=== PATIENT | female | born 1980 | race Caucasian/White ===

== ENCOUNTER 2016-05-22 11:22 | Outpatient (CLI) ==
[2016-03-24 13:40] VITALS: BMI 28.8
[2016-05-22 12:53] LABS: BASOPHILS # (AUTO) 0.1 K/uL (0-0.2); BASOPHILS % (AUTO) 0.7 % (0.0-3.0); EOSINOPHILS # (AUTO) 0.3 K/ul (0.0-0.7); EOSINOPHILS % (AUTO) 3.5 % (0.0-7.0); HEMATOCRIT 40.9 % (37.0-47.0); HEMOGLOBIN 13.6 g/dl (12.0-16.0); IMMATURE GRANULOCYTE % (AUTO) 0.1 % (0.0-5.0); LYMPHOCYTES # (AUTO) 2.6 K/uL (0.60-3.4); LYMPHOCYTES % (AUTO) 37.3 (10.0-50.0); MEAN CORPUSCULAR HEMOGLOBIN 32.7 pg (27.0-31.0); MEAN CORPUSCULAR HGB CONC 33.3 (31.8-35.4); MEAN CORPUSCULAR VOLUME 98.3 fl (81.0-99.0); MONOCYTES # (AUTO) 0.5 K/uL (0.4-2.0); NEUTROPHILS # (AUTO) 3.6 K/ul (2.0-6.9); NEUTROPHILS % (AUTO) 51.4; PLATELET COUNT 290 10^3/uL (140-440); RED BLOOD COUNT 4.16 10^6/ul (4.20-5.40); WHITE BLOOD COUNT 7.05 K/ul (4.6-10.2)
[2016-05-22 13:04] LABS: ALBUMIN 3.8 g/dL (3.4-5.0); ALBUMIN/GLOBULIN RATIO 1.19; ANION GAP 14.1; BILIRUBIN,TOTAL 0.3 mg/dL (0.00-1.20); BUN/CREATININE RATIO 11.23; CALCIUM 9.4 mg/dL (8.2-10.2); CHOL/HDL RATIO 7.9 (4.5-5.5); CREATININE 0.89 mg/dL (0.60-1.30); POTASSIUM 4.1 mmol/L (3.5-5.10)
== END 2016-05-22 11:23 | disposition home or self-care (01) ==
LOC: LAB 11:22
PROVIDERS: ATTEND Nurse Practitioner Family
DX: B18.2 Chronic viral hepatitis C (principal)
CPT/HCPCS: 36415; 80053; 80061; 85025

== ENCOUNTER 2016-08-14 13:16 | Outpatient (CLI) ==
[2016-03-24 13:40] VITALS: BMI 28.8
--- NOTE | 2016-08-14 13:40 | US ---
EXAM: Ultrasound exam HISTORY: Localized adiposity COMPARISON: None FINDINGS: Ultrasound right axilla was performed in the region of clinical concern. No mass is micheal ntified. No focal sonographic abnormality identified. IMPRESSION: No mass identified in the right axilla in the region of clinical concern.
== END 2016-08-14 13:17 | disposition home or self-care (01) ==
LOC: RAD 13:16
PROVIDERS: ATTEND Nurse Practitioner Family
DX: E65 Localized adiposity (principal)
CPT/HCPCS: 76882

== ENCOUNTER 2016-09-27 14:42 | Emergency (ER) ==
[2016-09-27 14:50] VITALS: BP 116/81; TEMP 98; BMI 28.1
--- NOTE | 2016-09-27 15:00 | ED.PDOC ---
Medical Screening Exam - General Information Time Seen by Physician*: 14:58 Mode of Arrival: Walk-In Information Source: Patient - History Chief Complaint: Medication Refill Stated Complaint: Patient medications are due at [facility], it is closed today needs medications for 3 days. not suicidal or hocidal. Severity: None - Review Of Systems Constitutional: None CV: Reports: None Respiratory: Reports: None GI: Reports: None : Reports: None Musculoskeletal: Reports: None Neuro: Reports: None - Past Medical History Past Medical History: Previously healthy (depression) - Examination Findings Visit Related to : No - Medical Decision Making Emergency Medical Condition: No Physical Exam - Physical Exam Appearance: Well-appearing, No pain distress, Well-nourished Eyes: JEAN-PIERRE, EOMI, Conjunctiva clear ENT: Ears normal, Nose normal, Oropharynx normal Respiratory: Airway patent, Breath sounds clear, Breath sounds equal, Respirations nonlabored Cardiovascular: RRR, Pulses normal, No rub, No murmur GI/: Soft, Nontender, No masses, Bowel sounds normal, No Organomegaly Musculoskeletal: Normal strength, ROM intact, No edema, No calf tenderness Skin: Warm, Dry, Normal color Neurological: Sensation intact, Motor intact, Reflexes intact, Cranial nerves intact, Alert, Oriented Psychiatric: Affect appropriate, Mood appropriate Critical Care Note - Critical Care Note Total Time (mins): 0 Course - Course Vital Signs: Temp Pulse Resp BP Pulse Ox 09/27/16 14:42 98 F 96 H 20 116/81 95 Departure - Departure Time of Disposition: 15:03 Disposition: HOME SELF-CARE Discharge Problem: Medication refill Instructions: Medicine Refill (ED) Condition: Stable Pt referred to PMD for follow-up: No Additional Instructions: patient is stable all she needs is refills Prescriptions: Escitalopram Oxalate [Lexapro] 20 mg PO DAILY #4 tablet Quetiapine Fumarate [Seroquel] 200 mg PO DAILY #4 tablet Allergies/Adverse Reactions: Allergies No Known Allergies Allergy (Verified 03/24/16 13:45) Home Medications: Ambulatory Orders Diazepam [Valium] 10 mg PO TID 12/07/12 Quetiapine Fumarate [Seroquel] 200 mg PO BEDTIME 12/07/12 Escitalopram Oxalate [Lexapro] 20 mg PO DAILY 08/13/16 Escitalopram Oxalate [Lexapro] 20 mg PO DAILY #4 tablet 09/27/16 Quetiapine Fumarate [Seroquel] 200 mg PO DAILY #4 tablet 09/27/16 Disposition Discussed With: Patient
== END 2016-09-27 15:06 | disposition home or self-care (01) ==
LOC: ED 14:42
DX: Z00.8 Encounter for other general examination (principal); Z76.0 Encounter for issue of repeat prescription; Z79.899 Other long term (current) drug therapy
CPT/HCPCS: 99282

== ENCOUNTER 2016-12-02 17:27 | Emergency (ER) ==
[2016-12-02 17:34] VITALS: BP 112/77; TEMP 98.8; BMI 27.3
[2016-12-02 18:08] LABS: BASOPHILS % (AUTO) 0.6 % (0.0-3.0); EOSINOPHILS # (AUTO) 0.4 K/ul (0.0-0.7); EOSINOPHILS % (AUTO) 5.3 % (0.0-7.0); HEMATOCRIT 37.1 % (37.0-47.0); HEMOGLOBIN 12.8 g/dl (12.0-16.0); IMMATURE GRANULOCYTE % (AUTO) 0.3 % (0.0-5.0); LYMPHOCYTES # (AUTO) 3.3 K/uL (0.60-3.4); LYMPHOCYTES % (AUTO) 48.1 (10.0-50.0); MEAN CORPUSCULAR HEMOGLOBIN 34.1 pg (27.0-31.0); MEAN CORPUSCULAR HGB CONC 34.5 (31.8-35.4); MEAN CORPUSCULAR VOLUME 98.9 fl (81.0-99.0); MONOCYTES # (AUTO) 0.6 K/uL (0.4-2.0); MONOCYTES % (AUTO) 8.7 (0-10); NEUTROPHILS # (AUTO) 2.5 K/ul (2.0-6.9); PLATELET COUNT 258 10^3/uL (140-440); RED BLOOD COUNT 3.75 10^6/ul (4.20-5.40)
[2016-12-02 18:10] LABS: BILIRUBIN,URINE Negative (NEGATIVE); KETONES,URINE Negative (NEGATIVE); LEUKOCYTE ESTERASE ,URINE Negative (NEGATIVE); NITRITE,URINE Negative (NEGATIVE); PH,URINE 6.5 (5-9); PROTEIN,URINE Negative (NEGATIVE); URINE, BLOOD Trace-intact (NEGATIVE)
[2016-12-02 18:12] LABS: ADD URINE MICROSCOPIC YES
--- NOTE | 2016-12-02 18:30 | ED.PDOC ---
General ED Provider: Dr. SHANKAR MEJIA Chief Complaint: Abdominal Pain Stated Complaint: ABDOMINAL PAIN Time Seen by Physician: 17:30 (SEEN WITH STAFF ) Mode of Arrival: Walk-In Information Source: Patient Exam Limitations: No limitations Primary Care Provider: [facility] Nursing and Triage Documentation Reviewed and Agree: Yes GI Complaint Exam - Abdominal Pain Complaint/Exam Onset: Gradual Symptoms Are: Still present Timing: Constant Initial Severity: Moderate Current Severity: Moderate Location of Pain: Discrete Radiates To: Reports: Chest Character: Reports: Dull, Aching Aggravating: Reports: None Alleviating: Reports: None Associated Signs and Symptoms: Denies: Diaphoresis, Fever, Cough, Chest pain, Dizziness, Back pain, Constipation, Blood in stool, Dysuria, Urinary frequency, Decreased urine output, Decreased appetite, Vaginal bleeding, Vaginal discharge , Nausea, Vomiting, Diarrhea, Sore throat, Decreased activity Related History: Reports: Similar episode AAA Risk Factors: Reports: None Cardiac Risk Factors: Reports: None Ectopic Risk Factors: Reports: None Ovarian Torsion Risk Factors: Reports: None Surgical Obstruction Risk Factors: Reports: None Related Surgical History: Reports: None Patient Rh Status: Unknown Abdominal Findings: Present: None Review of Systems - Review Of Systems Constitutional: Reports: No symptoms Eyes: Reports: No symptoms Ears, Nose, Mouth, Throat: Reports: No symptoms Respiratory: Reports: No symptoms Cardiac: Reports: No symptoms GI: Reports: Abdominal pain : Reports: No symptoms Musculoskeletal: Reports: No symptoms Skin: Reports: No symptoms Neurological: Reports: No symptoms Endocrine: Reports: No symptoms Hematologic/Lymphatic: Reports: No symptoms All Other Systems: Reviewed and Negative Past Medical History - Past Medical History Previously Healthy: Yes Endocrine: Reports: None Cardiovascular: Reports: None Respiratory: Reports: None Hematological: Reports: None Gastrointestinal: Reports: None Genitourinary: Reports: None Neuro/Psych: Reports: Anxiety, Depression Musculoskeletal: Reports: None Cancer: Reports: None Last Menstrual Period: na - Surgical History General Surgical History: Reports: None - Family History Family History: Reports: None - Social History Smoking Status: Current every day smoker Hx Substance Use: Yes ([facility] card) Alcohol Screening: None - Immunizations Tetanus Shot up to Date: Yes Physical Exam - Physical Exam Appearance: Well-appearing, No pain distress, Well-nourished Eyes: JEAN-PIERRE, EOMI, Conjunctiva clear ENT: Ears normal, Nose normal, Oropharynx normal Respiratory: Airway patent, Breath sounds clear, Breath sounds equal, Respirations nonlabored Cardiovascular: RRR, Pulses normal, No rub, No murmur GI/: Soft, Nontender, No masses, Bowel sounds normal, No Organomegaly Musculoskeletal: Normal strength, ROM intact, No edema, No calf tenderness Skin: Warm, Dry, Normal color Neurological: Sensation intact, Motor intact, Reflexes intact, Cranial nerves intact, Alert, Oriented Psychiatric: Affect appropriate, Mood appropriate Critical Care Note - Critical Care Note Total Time (mins): 0 Course - Course Hematology/Chemistry: 12/02/16 18:00 Orders, Labs, Meds: Lab Review 12/02/16 12/02/16 17:40 18:00 WBC 6.80 RBC 3.75 L Hgb 12.8 Hct 37.1 MCV 98.9 MCH 34.1 H MCHC 34.5 RDW Coeff of Jyoti 14.7 Plt Count 258 Immature Gran % (Auto) 0.3 Neut % (Auto) 37.0 Lymph % (Auto) 48.1 [place] % (Auto) 8.7 Eos % (Auto) 5.3 Baso % (Auto) 0.6 Immature Gran # (Auto) 0.0 Neut # 2.5 Lymph # 3.3 [place] # 0.6 Eos # 0.4 Baso # 0.0 Urine Color Yellow Urine Clarity Clear Urine pH 6.5 Ur Specific [place] <=1.005 Urine Protein Negative Urine Glucose (UA) Negative Urine Ketones Negative Urine Blood Trace-intact Urine Nitrite Negative Urine Bilirubin Negative Urine Urobilinogen 0.2 Ur Leukocyte Esterase Negative Urine Microscopic RBC 0-2 Ur Squamous Epith Cells 0-2 Orders Category Date Time Status AMYLASE Stat LAB 12/02/16 18:00 Received CBC W/ AUTO DIFF Stat LAB 12/02/16 18:00 Completed COMPREHENSIVE METABOLIC PANEL Stat LAB 12/02/16 18:00 Received LIPASE Stat LAB 12/02/16 18:00 Received URINALYSIS C & S IF INDICATED Stat LAB 12/02/16 17:40 Completed URINE DRUG SCREEN (RAPID FOR ED) [DRUG SCREEN, URINE, LAB 12/02/16 17:40 Received RAPID] Stat CT ABDOMEN/PELVIS WO CONTRAST Stat RADS 12/02/16 17:55 Taken Vital Signs: Temp Pulse Resp BP Pulse Ox 12/02/16 17:27 98.8 F 79 20 112/77 96 Departure - Departure Time of Disposition: 19:00 Disposition: HOME SELF-CARE Discharge Problem: Abdominal pain Instructions: Abdominal Pain (ED) Condition: Good Pt referred to PMD for follow-up: Yes Allergies/Adverse Reactions: Allergies No Known Allergies Allergy (Verified 12/02/16 17:36) Home Medications: Ambulatory Orders Diazepam [Valium] 10 mg PO TID 12/07/12 Quetiapine Fumarate [Seroquel] 200 mg PO BEDTIME 12/07/12 Escitalopram Oxalate [Lexapro] 20 mg PO DAILY 08/13/16 Escitalopram Oxalate [Lexapro] 20 mg PO DAILY #4 tablet 09/27/16 Quetiapine Fumarate [Seroquel] 200 mg PO DAILY #4 tablet 09/27/16 Disposition Discussed With: Patient
[2016-12-02 18:32] LABS: ALBUMIN 3.6 g/dL (3.4-5.0); ALBUMIN/GLOBULIN RATIO 1.2; ANION GAP 11.8; BILIRUBIN,TOTAL 0.26 mg/dL (0.00-1.20); BUN/CREATININE RATIO 6.79; CALCIUM 8.7 mg/dL (8.2-10.2); CREATININE 1.03 mg/dL (0.60-1.30); POTASSIUM 3.8 mmol/L (3.5-5.10); TOTAL PROTEIN 6.6 g/dL (6.4-8.2)
[2016-12-02 18:40] LABS: COCAIN SCREEN,URINE NEGATIVE (NEGATIVE)
--- NOTE | 2016-12-02 18:52 | CT ---
EXAM: CT scan of the abdomen and pelvis without contrast HISTORY: Pain TECHNIQUE: Imaging of the abdomen and pelvis was performed without contrast. 3 mm thin axial image s and coronal and sagittal reconstructions were provided for interpretation. Comparison 08/11/2016. FINDINGS: The liver, spleen, pancreas, adrenal glands and kidneys appear normal. The proximal uret ers are normal size. The small and large bowel loops are normal caliber. There is no free air. No acute abnormalities are seen within the anterior abdominal wall. No retroperitoneal abnormalities are seen. The helical images obtained through the pelvis demonstrate a normal appearance of the rectum, urinar y bladder. The appendix appears normal. There is no free fluid seen within the pelvis. Patchy [place] cities are seen within the dependent lung bases bilaterally. No lytic or blastic lesions are seen w ithin the osseous structures. IMPRESSION: There is no bowel obstruction or acute inflammatory change seen within the abdomen and pelvis. There is no ureteral obstruction. Mild atelectasis versus pneumonia seen within the dependent lung bases bilaterally.
== END 2016-12-02 19:05 | disposition home or self-care (01) ==
LOC: ED 17:27
DX: R10.9 Unspecified abdominal pain (principal); F17.210 Nicotine dependence, cigarettes, uncomplicated
CPT/HCPCS: 36415; 80053; 80306; 81001; 82150; 83690; 85025; 99283

== ENCOUNTER 2017-06-30 17:39 | Emergency (ER) ==
[2017-06-30 17:50] VITALS: BP 113/78; TEMP 98.2; BMI 31.2
--- NOTE | 2017-06-30 18:21 | ED.PDOC ---
General Stated Complaint: Abdominal pain; 1 year worse yesterday and today. Pain goes up to right chest. Time Seen by Physician: 18:20 Mode of Arrival: Walk-In Information Source: Patient Exam Limitations: No limitations Nursing and Triage Documentation Reviewed and Agree: Yes Reviewed sepsis parameters & appropriate labs ordered?: Yes System Inflammatory Response Syndrome: Not Applicable System Inflammatory Response Syndrome: Not Applicable <LORI JUAREZ - Last Filed: 06/30/17 19:40> <GOLDEN SALAZAR - Last Filed: 06/30/17 20:58> ED Provider: Dr. GOLDEN SALAZAR Chief Complaint: Abdominal Pain Primary Care Provider: [facility] Sepsis Protocol: For patient's 13 years and over: Temp is 96.8 and below OR 101 and greater Pulse >90 BPM Resp >20/minute Acutely Altered Mental Status Are patient's symptoms suggestive of a new infection, such as: -Pneumonia -Skin, Soft Tissue -Endocarditis -UTI -Bone, Joint Infection -Implantable Device -Acute Abdominal Infection -Wound Infection -Meningitis -Blood Stream Catheter Infection -Unknown GI Complaint Exam - Abdominal Pain Complaint/Exam Duration: One and a half years; worse last two days; scared she might need surgery Symptoms Are: Still present Timing: Intermittent Initial Severity: Mild Current Severity: Moderate Location of Pain: Epigastric Radiates To: Reports: Chest Character: Reports: Sharp, Cramping Aggravating: Reports: Movement Alleviating: Reports: None <LORI JUAREZ - Last Filed: 06/30/17 19:40> Review of Systems - Review Of Systems Constitutional: Reports: No symptoms, Malaise Respiratory: Reports: No symptoms Musculoskeletal: Reports: No symptoms All Other Systems: Reviewed and Negative <LORI JUAREZ - Last Filed: 06/30/17 19:40> Past Medical History - Past Medical History Previously Healthy: Yes Endocrine: Reports: None Cardiovascular: Reports: None Respiratory: Reports: None Hematological: Reports: None Gastrointestinal: Reports: None Genitourinary: Reports: None Neuro/Psych: Reports: Anxiety, Depression Musculoskeletal: Reports: None Cancer: Reports: None Last Menstrual Period: na - Surgical History General Surgical History: Reports: None - Family History Family History: Reports: None - Social History Smoking Status: Current some day smoker Hx Substance Use: Yes (has [place] card) Alcohol Screening: None - Immunizations Tetanus Shot up to Date: Yes <LORI JUAREZ - Last Filed: 06/30/17 19:40> Physical Exam - Physical Exam Appearance: Ill-appearing Ill-appearing: Mild Pain Distress: Moderate Eyes: JEAN-PIERRE, EOMI Neck: Supple Respiratory: Airway patent, Breath sounds clear, Breath sounds equal Cardiovascular: RRR, Pulses normal GI/: Soft, Tender (mild diffuse tenderness; no rebound) Skin: Warm, Dry, Normal color Neurological: Sensation intact, Motor intact Psychiatric: Affect appropriate, Mood appropriate, Anxious (very - says scared she might need surgery) <LORI JUAREZ - Last Filed: 06/30/17 19:40> Interpretation - EKG Interpretation Rate: Normal Rhythm: Sinus Ectopy: None ST Segment: Normal <LORI JUAREZ - Last Filed: 06/30/17 19:40> - Radiology Interpretation Radiology Interpretation By: Radiologist Radiology Results: Negative Exam Interpreted: CT Scan <GOLDEN SALAZAR - Last Filed: 06/30/17 20:58> Critical Care Note - Critical Care Note Total Time (mins): 25 <LORI JUAREZ - Last Filed: 06/30/17 19:40> Course - Course Hematology/Chemistry: 06/30/17 18:19 06/30/17 18:19 <LROI JUAREZ - Last Filed: 06/30/17 19:40> - Course Hematology/Chemistry: 06/30/17 18:19 06/30/17 18:19 <GOLDEN SALAZAR - Last Filed: 06/30/17 20:58> - Course Orders, Labs, Meds: Lab Review 06/30/17 06/30/17 06/30/17 18:19 18:19 18:19 WBC 7.49 RBC 4.16 L Hgb 13.6 Hct 39.5 MCV 95.0 MCH 32.7 H MCHC 34.4 RDW Coeff of Jyoti 14.9 H Plt Count 275 Immature Gran % (Auto) 0.3 Neut % (Auto) 49.4 Lymph % (Auto) 37.8 [place] % (Auto) 7.7 Eos % (Auto) 4.3 Baso % (Auto) 0.5 Immature Gran # (Auto) 0.0 Neut # (Auto) 3.7 Lymph # (Auto) 2.8 [place] # (Auto) 0.6 Eos # (Auto) 0.3 Baso # (Auto) 0.0 Sodium 142 Potassium 3.3 L Chloride 105 Carbon Dioxide 27 Anion Gap 13.3 BUN 7 Creatinine 1.02 Estimated GFR (MDRD) 60.00 BUN/Creatinine Ratio 6.86 Glucose 94 Calcium 9.0 Total Bilirubin 0.4 AST 23 ALT 26 Alkaline Phosphatase 78 Total Protein 7.0 Albumin 3.8 Globulin 3.2 Albumin/Globulin Ratio 1.19 Lipase 15 Urine Color Urine Clarity Urine pH Ur Specific [place] Urine Protein Urine Glucose (UA) Urine Ketones Urine Blood Urine Nitrite Urine Bilirubin Urine Urobilinogen Ur Leukocyte Esterase Urine Microscopic RBC Ur Squamous Epith Cells Urine Bacteria 06/30/17 18:20 WBC RBC Hgb Hct MCV MCH MCHC RDW Coeff of Jyoti Plt Count Immature Gran % (Auto) Neut % (Auto) Lymph % (Auto) [place] % (Auto) Eos % (Auto) Baso % (Auto) Immature Gran # (Auto) Neut # (Auto) Lymph # (Auto) [place] # (Auto) Eos # (Auto) Baso # (Auto) Sodium Potassium Chloride Carbon Dioxide Anion Gap BUN Creatinine Estimated GFR (MDRD) BUN/Creatinine Ratio Glucose Calcium Total Bilirubin AST ALT Alkaline Phosphatase Total Protein Albumin Globulin Albumin/Globulin Ratio Lipase Urine Color Yellow Urine Clarity Clear Urine pH 6.0 Ur Specific [place] 1.010 Urine Protein Negative Urine Glucose (UA) Negative Urine Ketones Negative Urine Blood Trace-lysed Urine Nitrite Negative Urine Bilirubin Negative Urine Urobilinogen 0.2 Ur Leukocyte Esterase Negative Urine Microscopic RBC 0-2 Ur Squamous Epith Cells 2-5 Urine Bacteria Trace Orders Category Date Time Status EKG-(ED ONLY) Stat CARDIO 06/30/17 18:39 Completed NPO REMINDER: IMAGING ONCE CARE 06/30/17 19:08 Completed CBC W/ AUTO DIFF Stat LAB 06/30/17 18:19 Completed COMPREHENSIVE METABOLIC PANEL Stat LAB 06/30/17 18:19 Completed LIPASE Stat LAB 06/30/17 18:19 Completed URINALYSIS C & S IF INDICATED Stat LAB 06/30/17 18:20 Completed CHEST, 1V AP ONLY Stat RADS 06/30/17 18:[address] ABDOMEN/PELVIS W CONTRAST Stat RADS 06/30/17 19:08 Completed Vital Signs: Temp Pulse Resp BP Pulse Ox 06/30/17 17:40 98.2 F 110 H 22 113/78 97 Departure <LORI JUAREZ - Last Filed: 06/30/17 19:40> - Departure Time of Disposition: 20:57 Pt referred to PMD for follow-up: Yes IPMP verified?: No Disposition Discussed With: Patient <GOLDEN SALAZAR - Last Filed: 06/30/17 20:58> - Departure Disposition: HOME SELF-CARE Discharge Problem: PUD (peptic ulcer disease) Instructions: Peptic Ulcer (ED) Condition: Stable Additional Instructions: No spicy food, no fired food. F/u with [facility] Prescriptions: Ranitidine HCl [Zantac] 150 mg PO BIDAC #20 tablet Sucralfate Susp [Carafate] 1 gm PO ACHS #1 bottle Allergies/Adverse Reactions: Allergies No Known Allergies Allergy (Verified 06/30/17 17:53) Home Medications: Ambulatory Orders Diazepam [Valium] 10 mg PO TID 12/07/12 Quetiapine Fumarate [Seroquel] 200 mg PO BEDTIME 12/07/12 Escitalopram Oxalate [Lexapro] 20 mg PO DAILY #4 tablet 09/27/16 Hydrocodone/Acetaminophen [[place] 5-325 Tablet] 1 each PO Q6HR PRN #7 tablet 05/20 Ranitidine HCl [Zantac] 150 mg PO BIDAC #20 tablet 06/30/17 Sucralfate Susp [Carafate] 1 gm PO ACHS #1 bottle 06/30/17
--- NOTE | 2017-06-30 20:41 | CT ---
EXAM: CT scan abdomen pelvis with contrast HISTORY: Right-sided pain COMPARISON: CT scan abdomen pelvis 12/02/2016 FINDINGS: Contiguous axial images obtained from lung bases to the symphysis pubis following uneventf ul administration intravenous contrast utilizing 3-mm collimation. Sagittal and coronal reconstructi ons were imaged and reviewed.. The visualized lung bases are clear. The gallbladder is fluid filled without cholelithiasis. The liver, pancreas, spleen and adrenal glands have normal enhanced CT appe arance. The kidneys excrete contrast normal fashion bilaterally . There is a stable simple cyst lef t kidney. Right kidney is unremarkable. Atherosclerotic changes are seen involving the aorta withou t aneurysm formation. There is a normal appendix. There has been a prior hysterectomy. There is no evidence of free fluid or inflammatory changes.. There is normal bladder.. Degenerative changes ar e noted at L5-S1.. There is an umbilical hernia containing only fat IMPRESSION: No acute intra-abdominal findings. Prior hysterectomy.
--- NOTE | 2017-06-30 20:42 | DI ---
EXAM: Single-view chest HISTORY: Chest pain COMPARISON: Two-view chest 01/01/2016 FINDINGS: The cardiomediastinal is normal. The lungs are clear bilaterally. IMPRESSION: No evidence of active pulmonary disease
== END 2017-06-30 21:00 | disposition home or self-care (01) ==
LOC: ED 17:39
DX: K27.9 Peptic ulcer, site unspecified, unspecified as acute or chronic, without hemorrhage or perforation (principal)
CPT/HCPCS: 36415; 80053; 81001; 83690; 85025; 93005; 93010; 99283

== ENCOUNTER 2017-07-25 16:01 | Emergency (ER) ==
[2017-07-25 16:09] VITALS: BP 129/81; TEMP 97.4; BMI 31.6
--- NOTE | 2017-07-25 16:10 | ED.PDOC ---
General ED Provider: Dr. EDGAR PEARSON Chief Complaint: Nausea/Vomiting Stated Complaint: Sudden onset of nausea and vomiting this morning with associated Abdominal cramping and stomach pain. States she was getting a headache-was hurngry so cooked a corndog in microwave then consumed it . She became violently ill with severe stomach cramping and nausea and vomiting Time Seen by Physician: 16:20 Mode of Arrival: Walk-In Information Source: Patient, Family Exam Limitations: No limitations [facility] and Triage Documentation Reviewed and Agree: Yes Reviewed sepsis parameters & appropriate labs ordered?: Yes System Inflammatory Response Syndrome: Not Applicable Sepsis Protocol: For patient's 13 years and over: Temp is 96.8 and below OR 101 and greater Pulse >90 BPM Resp >20/minute Acutely Altered Mental Status Are patient's symptoms suggestive of a new infection, such as: -Pneumonia -Skin, Soft Tissue -Endocarditis -UTI -Bone, Joint Infection -Implantable Device -Acute Abdominal Infection -Wound Infection -Meningitis -Blood Stream Catheter Infection -Unknown System Inflammatory Response Syndrome: Not Applicable GI Complaint Exam - Vomiting/Diarrhea Complaint/Exam Symptoms Are: Still present Episodes of Vomiting over last 24 Hours: 10 Episodes of Diarrhea Over Last 24 Hours: 0 Initial Severity: Severe Current Severity: Severe Character of Vomiting: Reports: Bilious Character of Diarrhea: Denies: Bloody, Watery, Mucoid, Malodorous Aggravating: Reports: Liquids, Movement Alleviating: Reports: None Associated Signs and Symptoms: Reports: Dizziness, Light-headedness, Abdominal pain, Cramping Related History: Denies: Similar episode, Recent antibiotics Recent Positive Test: No Surgical Obstruction Risk Factors: Reports: Bilious emesis, Colicky abdominal pain Related Surgical History: Reports: None Abdominal Findings: Absent: Pulsatile mass, Abdominal distention, Rebound tenderness, Peritoneal signs, McBurney's Point tender, CVA Tenderness, Hernia, Inguinal swelling Differential Diagnoses: Bowel Obstruction, Viral Gastroenteritis Review of Systems - Review Of Systems Constitutional: Reports: No symptoms Eyes: Reports: No symptoms Ears, Nose, Mouth, Throat: Reports: No symptoms Respiratory: Reports: No symptoms Cardiac: Reports: No symptoms GI: Reports: No symptoms, Abdominal pain, Nausea, Vomiting : Reports: No symptoms Musculoskeletal: Reports: No symptoms Skin: Reports: No symptoms Neurological: Reports: No symptoms Endocrine: Reports: No symptoms Hematologic/Lymphatic: Reports: No symptoms All Other Systems: Reviewed and Negative Past Medical History - Past Medical History Previously Healthy: Yes Endocrine: Reports: None Cardiovascular: Reports: None Respiratory: Reports: None Hematological: Reports: None Gastrointestinal: Reports: None Genitourinary: Reports: None Neuro/Psych: Reports: Anxiety, Depression Musculoskeletal: Reports: None Cancer: Reports: None - Surgical History General Surgical History: Reports: None - Family History Family History: Reports: None - Social History Smoking Status: Current some day smoker Hx Substance Use: Yes (has [employer] card) Alcohol Screening: None Physical Exam - Physical Exam Appearance: Ill-appearing, Obese Ill-appearing: Severe Pain Distress: Moderate Eyes: JEAN-PIERRE, EOMI, Conjunctiva clear ENT: Ears normal, Nose normal, Oropharynx normal Respiratory: Airway patent, Breath sounds clear, Breath sounds equal, Respirations nonlabored Cardiovascular: RRR, Pulses normal, No rub, No murmur GI/: Soft, Tender, Bowel sounds hypoactive Musculoskeletal: Normal strength, ROM intact, No edema, No calf tenderness Skin: Warm, Dry, Normal color Neurological: Sensation intact, Motor intact, Reflexes intact, Cranial nerves intact, Alert, Oriented Psychiatric: Affect appropriate, Mood appropriate Critical Care Note - Critical Care Note Total Time (mins): 0 Course - Course Hematology/Chemistry: 07/25/17 16:25 07/25/17 16:25 Orders, Labs, Meds: Lab Review 07/25/17 07/25/17 16:25 16:25 WBC 11.98 H RBC 4.30 Hgb 13.9 Hct 40.5 MCV 94.2 MCH 32.3 H MCHC 34.3 RDW Coeff of Jyoti 14.7 Plt Count 287 Immature Gran % (Auto) 0.3 Neut % (Auto) 56.0 Lymph % (Auto) 32.8 [place] % (Auto) 7.3 Eos % (Auto) 3.2 Baso % (Auto) 0.4 Immature Gran # (Auto) 0.0 Neut # (Auto) 6.7 Lymph # (Auto) 3.9 H [place] # (Auto) 0.9 Eos # (Auto) 0.4 Baso # (Auto) 0.1 Sodium 142 Potassium 3.2 L Chloride 105 Carbon Dioxide 23 Anion Gap 17.2 BUN 9 Creatinine 1.04 Estimated GFR (MDRD) 59.00 BUN/Creatinine Ratio 8.65 Glucose 134 H Calcium 9.3 Total Bilirubin 0.4 AST 23 ALT 26 Alkaline Phosphatase 82 Total Protein 7.5 Albumin 4.1 Globulin 3.4 Albumin/Globulin Ratio 1.21 Orders Category Date Time Status CBC W/ AUTO DIFF Stat LAB 07/25/17 16:25 Completed CMP [COMPREHENSIVE METABOLIC PANEL] Stat LAB 07/25/17 16:25 Completed 0.9 % Sodium Chloride [Saline Flush] MEDS 07/25/17 16:10 Ordered 1 syr IVF PRN PRN Famotidine Inj [Pepcid] MEDS 07/25/17 16:15 Discontinued 20 mg IVP ONCE STA Pantoprazole Sodium [Protonix IV] MEDS 07/25/17 16:30 Ordered 40 mg IVP DAILY Promethazine HCl [Phenergan 25 mg/ml Vial] MEDS 07/25/17 16:17 Discontinued 25 mg .ROUTE .STK-MED ONE Promethazine HCl [Phenergan 25 mg/ml Vial] 25 mg MEDS 07/25/17 16:14 Discontinued 0.9 % Sodium Chloride [Sodium Chloride] 50 ml IV ONCE Sodium Chloride 0.9% [Sodium Chloride] 1,000 ml MEDS 07/25/17 16:13 Discontinued IV BOLUS Medications Generic Name Dose Route Start Last Admin Trade Name Freq PRN Reason Stop Dose Admin Pantoprazole Sodium 40 mg 07/25/17 16:30 07/25/17 16:26 Protonix Iv IVP 40 mg DAILY ELIESER Administration Sodium Chloride 1 syr 07/25/17 16:10 Saline Flush IVF PRN PRN To flush IV Discontinued Medications Generic Name Dose Route Start Last Admin Trade Name Freq PRN Reason Stop Dose Admin Famotidine 20 mg 07/25/17 16:15 07/25/17 16:24 Pepcid IVP 07/25/17 16:16 20 mg ONCE STA Administration Sodium Chloride 1,000 mls @ 500 mls/hr 07/25/17 16:13 07/25/17 16:24 Sodium Chloride IV 07/25/17 18:12 500 mls/hr BOLUS STA Administration Promethazine HCl 25 mg/ Sodium 51 mls @ 75 mls/hr 07/25/17 16:14 07/25/17 16: 29 Chloride IV 07/25/17 16:54 75 mls/hr ONCE STA Administration Vital Signs: Temp Pulse Resp BP Pulse Ox 07/25/17 16:01 97.4 F L 84 20 129/81 98 Departure - Departure Time of Disposition: 19:40 Disposition: HOME SELF-CARE Discharge Problem: Gastroenteritis Discharge Problem: (Ruled Out): Acute alcoholic gastritis Instructions: Gastroenteritis (ED) Condition: Good Pt referred to PMD for follow-up: Yes (5-7 days) IPMP verified?: No Allergies/Adverse Reactions: Allergies No Known Allergies Allergy (Verified 07/25/17 16:15) Home Medications: Ambulatory Orders Diazepam [Valium] 10 mg PO TID 12/07/12 Quetiapine Fumarate [Seroquel] 200 mg PO BEDTIME 12/07/12 Escitalopram Oxalate [Lexapro] 20 mg PO DAILY #4 tablet 09/27/16 Hydrocodone/Acetaminophen [Cooter 5-325 Tablet] 1 each PO Q6HR PRN #7 tablet 05/20 Ranitidine HCl [Zantac] 150 mg PO BIDAC #20 tablet 06/30/17 Sucralfate Susp [Carafate] 1 gm PO ACHS #1 bottle 06/30/17 Famotidine [Pepcid] 20 mg PO BIDAC #20 tablet 07/25/17 Ondansetron [Zofran Odt] 4 mg PO Q8H PRN #7 tab.rapdis 07/25/17 Disposition Discussed With: Patient, Family
[2017-07-25] MEDS ORDERED: SODIUM CHLORIDE 1,000 ML IV STA (16:13)
[2017-07-25] MEDS ORDERED: PHENERGAN 25 MG/ML VIAL 25 MG in SODIUM CHLORIDE 50 ML IV STA (16:14)
[2017-07-25] MEDS ORDERED: PEPCID IVP STA (16:15)
[2017-07-25] MEDS ORDERED: PHENERGAN 25 MG/ML VIAL ONE (16:17)
[2017-07-25] MEDS ORDERED: PROTONIX IV ONE (16:23)
[2017-07-25] MEDS ORDERED: PROTONIX IV IVP SCH (16:30)
== END 2017-07-25 20:15 | disposition home or self-care (01) ==
LOC: ED 16:01
DX: K52.9 Noninfective gastroenteritis and colitis, unspecified (principal); F17.210 Nicotine dependence, cigarettes, uncomplicated
CPT/HCPCS: 36415; 80053; 85025; 96361; 96365; 96375; 99283

== ENCOUNTER 2017-09-30 14:10 | Outpatient (CLI) | END 2017-09-30 14:11 | disposition home or self-care (01) | LOC: RHC-LAB 14:10 | PROVIDERS: ATTEND Emergency Medicine | DX: L02.419 Cutaneous abscess of limb, unspecified (principal) | CPT/HCPCS: 87070 ==

== ENCOUNTER 2018-03-19 13:22 | Emergency (ER) ==
[2018-03-19 13:24] VITALS: BP 136/75; TEMP 97.5; BMI 36.0
--- NOTE | 2018-03-19 14:21 | ED.PDOC ---
General ED Provider: Dr. SHANKAR MEJIA Chief Complaint: Medication Refill Stated Complaint: MED REFILL Time Seen by Physician: 13:30 (SEEN WITH alfonso at all times ) Mode of Arrival: Walk-In Information Source: Patient Exam Limitations: No limitations Primary Care Provider: DEANDRA STOUT Nursing and Triage Documentation Reviewed and Agree: Yes Does patient meet sepsis criteria?: No System Inflammatory Response Syndrome: Not Applicable Sepsis Protocol: For patient's 13 years and over: Temp is 96.8 and below OR 101 and greater Pulse >90 BPM Resp >20/minute Acutely Altered Mental Status Are patient's symptoms suggestive of a new infection, such as: -Pneumonia -Skin, Soft Tissue -Endocarditis -UTI -Bone, Joint Infection -Implantable Device -Acute Abdominal Infection -Wound Infection -Meningitis -Blood Stream Catheter Infection -Unknown Miscellaneous Complaint Exam - Complex/Multi-System Complaint/Exam Onset/Duration: out of medication offered no other reasons for visit Associated Signs and Symptoms: Denies: Decreased responsiveness, Confusion, Agitation, Dizziness, Weakness, Syncope, Headache, Short of air, Cough, Wheezing , Hemoptysis, Chest pain, Palpitations, Edema, Nausea, Vomiting, Diarrhea, Abdominal pain, Back pain, Dysuria, Hematemesis, Melena, Decreased oral intake, Fever, Diaphoresis, Immunocompromised, Anticoagulation Therapy, Recent medication changes, Indwelling pesticide use medical coordinator, Prior MRSA, Prior VRE, Recent trauma, Remote trauma Focal Sensory Loss: Present: None Gait: Normal Gag Reflex Present: Yes Differential Diagnosis: Other (med refill) Review of Systems - Review Of Systems Constitutional: Reports: No symptoms Eyes: Reports: No symptoms Ears, Nose, Mouth, Throat: Reports: No symptoms Respiratory: Reports: No symptoms Cardiac: Reports: No symptoms GI: Reports: No symptoms : Reports: No symptoms Musculoskeletal: Reports: No symptoms Skin: Reports: No symptoms Neurological: Reports: No symptoms Endocrine: Reports: No symptoms Hematologic/Lymphatic: Reports: No symptoms All Other Systems: Reviewed and Negative Past Medical History - Past Medical History Previously Healthy: Yes Endocrine: Reports: None Cardiovascular: Reports: None Respiratory: Reports: None Hematological: Reports: None Gastrointestinal: Reports: None Genitourinary: Reports: None Neuro/Psych: Reports: Anxiety, Depression Musculoskeletal: Reports: None Cancer: Reports: None Last Menstrual Period: N/A - Surgical History General Surgical History: Reports: None - Family History Family History: Reports: None - Social History Smoking Status: Current some day smoker Hx Substance Use: Yes (has [employer] card) Alcohol Screening: None - Immunizations Tetanus Shot up to Date: No Physical Exam - Physical Exam Appearance: Well-appearing, No pain distress, Well-nourished Eyes: JEAN-PIERRE, EOMI, Conjunctiva clear ENT: Ears normal, Nose normal, Oropharynx normal Respiratory: Airway patent, Breath sounds clear, Breath sounds equal, Respirations nonlabored Cardiovascular: RRR, Pulses normal, No rub, No murmur GI/: Soft, Nontender, No masses, Bowel sounds normal, No Organomegaly Musculoskeletal: Normal strength, ROM intact, No edema, No calf tenderness Skin: Warm, Dry, Normal color Neurological: Sensation intact, Motor intact, Reflexes intact, Cranial nerves intact, Alert, Oriented Psychiatric: Affect appropriate, Mood appropriate Critical Care Note - Critical Care Note Total Time (mins): 0 Course - Course Vital Signs: Temp Pulse Resp BP Pulse Ox 03/19/18 13:22 97.5 F L 80 18 136/75 95 Departure - Departure Time of Disposition: 14:20 Disposition: HOME SELF-CARE Discharge Problem: Medication refill Instructions: Medicine Refill (ED) Condition: Good Pt referred to PMD for follow-up: Yes IPMP verified?: No Additional Instructions: Please call your Family Physician as soon as possible to schedule a follow-up appointment. Allergies/Adverse Reactions: Allergies No Known Allergies Allergy (Verified 07/25/17 16:15) Home Medications: Ambulatory Orders Diazepam [Valium] 10 mg PO TID 12/07/12 Quetiapine Fumarate [Seroquel] 200 mg PO BEDTIME 12/07/12 Escitalopram Oxalate [Lexapro] 20 mg PO DAILY #4 tablet 09/27/16
== END 2018-03-19 14:25 | disposition home or self-care (01) ==
LOC: ED 13:22
DX: Z76.0 Encounter for issue of repeat prescription (principal); F17.210 Nicotine dependence, cigarettes, uncomplicated
CPT/HCPCS: 99282

== ENCOUNTER 2018-11-04 21:08 | Emergency (ER) ==
[2018-11-04 21:21] VITALS: BP 131/90; TEMP 100; BMI 33.2
[2018-11-04] MEDS ORDERED: AUGMENTIN 875-125 MG TAB PO STA (21:38)
[2018-11-04] MEDS ORDERED: TENIVAC IM ONE (21:38)
[2018-11-04] MEDS ORDERED: BACTROBAN OINTMENT 1 GRAM APPLICATOR (ER) TP STA (21:39)
--- NOTE | 2018-11-04 21:42 | ED.PDOC ---
General ED Provider: Dr. EDGAR KAUFMAN-ER Chief Complaint: Laceration Stated Complaint: i was bitten and scratched by my cat Time Seen by Physician: 21:10 Mode of Arrival: Walk-In Information Source: Patient Exam Limitations: No limitations Primary Care Provider: DEANDRA STOUT Nursing and Triage Documentation Reviewed and Agree: Yes Does patient meet sepsis criteria?: No System Inflammatory Response Syndrome: Not Applicable Sepsis Protocol: For patient's 13 years and over: Temp is 96.8 and below OR 101 and greater Pulse >90 BPM Resp >20/minute Acutely Altered Mental Status Are patient's symptoms suggestive of a new infection, such as: -Pneumonia -Skin, Soft Tissue -Endocarditis -UTI -Bone, Joint Infection -Implantable Device -Acute Abdominal Infection -Wound Infection -Meningitis -Blood Stream Catheter Infection -Unknown Skin Complaint Exam - Lac/Torso/Upper Ext. Complaint/Exam Location of Injury: Right, Left, Arm Mechanism of Injury: Puncture, Abrasion Symptoms Are: Still present Initial Severity: Mild Aggravating: Movement Alleviating: Compression Associated Signs and Symptoms: Denies: Fever, Chills, Erythema, Numbness, Tingling Differential Diagnoses: Abrasion, Avulsion, Puncture Wound Review of Systems - Review Of Systems Constitutional: Reports: No symptoms Eyes: Reports: No symptoms Ears, Nose, Mouth, Throat: Reports: No symptoms Respiratory: Reports: No symptoms Cardiac: Reports: No symptoms GI: Reports: No symptoms : Reports: No symptoms Musculoskeletal: Reports: No symptoms Skin: Reports: No symptoms Neurological: Reports: No symptoms Endocrine: Reports: No symptoms Hematologic/Lymphatic: Reports: No symptoms All Other Systems: Reviewed and Negative Past Medical History - Past Medical History Previously Healthy: Yes Endocrine: Reports: None Cardiovascular: Reports: None Respiratory: Reports: None Hematological: Reports: None Gastrointestinal: Reports: None Genitourinary: Reports: None Neuro/Psych: Reports: Anxiety, Depression Musculoskeletal: Reports: None Cancer: Reports: None Last Menstrual Period: PT HAS HAD A HYSTERECTOMY - Surgical History General Surgical History: Reports: None - Family History Family History: Reports: None - Social History Smoking Status: Current every day smoker, Light tobacco smoker Hx Substance Use: No (has marjuana card) Alcohol Screening: None Physical Exam - Physical Exam Appearance: Well-appearing, No pain distress, Well-nourished Eyes: JEAN-PIERRE, EOMI, Conjunctiva clear ENT: Ears normal, Nose normal, Oropharynx normal Neck: Supple Respiratory: Airway patent, Breath sounds clear, Breath sounds equal, Respirations nonlabored Cardiovascular: RRR, Pulses normal, No rub, No murmur GI/: Soft, Nontender, No masses, Bowel sounds normal, No Organomegaly Musculoskeletal: Normal strength, ROM intact, No edema, No calf tenderness Skin: Warm Neurological: Sensation intact, Motor intact, Reflexes intact, Cranial nerves intact, Alert, Oriented Psychiatric: Affect appropriate Critical Care Note - Critical Care Note Total Time (mins): 0 Course - Course Orders, Labs, Meds: Orders Category Date Time Status Wound care [ED WOUND CARE] .ONCE EMERGENCY 11/04/18 21:39 Active Amoxicillin/Potassium Clav [Augmentin 875-125 mg Tab] MEDS 11/04/18 21:38 Stat 1 tab PO ONCE STA Mupirocin [Bactroban Ointment 1 Gram Applicator (ER)] MEDS 11/04/18 21:39 Stat 1 gm TP ONCE STA Tetanus and Diphtheria Tox/Pf [Tenivac] MEDS 11/04/18 21:38 Once 0.5 ml IM .ONCE ONE Vital Signs: Temp Pulse Resp BP Pulse Ox 11/04/18 21:08 100 F H 100 H 20 131/90 97 Departure - Departure Time of Disposition: 21:41 Disposition: HOME SELF-CARE Discharge Problem: Animal bite Instructions: Animal Bite (ED) Condition: Good Pt referred to PMD for follow-up: Yes IPMP verified?: No Additional Instructions: keep scratches clean with soap and water daily....change dressings daily till healed---return if any signs of infection Allergies/Adverse Reactions: Allergies No Known Allergies Allergy (Verified 11/04/18 21:16) Home Medications: Ambulatory Orders Diazepam [Valium] 10 mg PO BID 12/07/12 Quetiapine Fumarate [Seroquel] 200 mg PO BEDTIME 12/07/12 Escitalopram Oxalate [Lexapro] 20 mg PO DAILY #4 tablet 09/27/16 Lamotrigine [Lamictal] 25 mg PO BID 11/04/18 Disposition Discussed With: Patient
== END 2018-11-04 21:58 | disposition home or self-care (01) ==
LOC: ED 21:08
DX: S41.152A Open bite of left upper arm, initial encounter (principal); S41.151A Open bite of right upper arm, initial encounter; W55.01XA Bitten by cat, initial encounter; S40.812A Abrasion of left upper arm, initial encounter; S40.811A Abrasion of right upper arm, initial encounter; F17.210 Nicotine dependence, cigarettes, uncomplicated
CPT/HCPCS: 90471; 90714; 99283

== ENCOUNTER 2018-12-29 08:58 | Outpatient (CLI) | END 2018-12-29 08:59 | disposition home or self-care (01) | LOC: LAB 08:58 | PROVIDERS: ATTEND Nurse Practitioner Family | DX: B18.2 Chronic viral hepatitis C (principal); K76.0 Fatty (change of) liver, not elsewhere classified | CPT/HCPCS: 36415; 80076; 80307; 82105; 82150; 82728; 82977; 83516; 83690; 85610; 86038; 86709; 87522 ==